=== PATIENT | male | born 1955 | race Caucasian/White ===

== ENCOUNTER 2020-07-02 22:17 | Inpatient (IN) | payer MEDICAID ==
[~2020-07-02] VITALS: Ht 165.1 cm; Wt 81.0 kg
[2020-07-02] MEDS ORDERED: SODIUM CHLORIDE 0.9% 1000ML BAG (SEPSIS BOLUS) IV ONE (22:45)
[2020-07-02 23:11] LABS: BASOPHILS % 0.2 % (0.0-2.0); EOSINOPHILS % 0.2 % (0.0-5.0); HEMATOCRIT. 24.8 % (42.0-52.0); LYMPHOCYTES % 12.2 % (20.0-50.0); MEAN CORPUSCULAR VOLUME 80.4 fL (80.0-94.0); MEAN PLATELET VOLUME 7.9 fl (7.4-10.4); MONOCYTES % 8.5 % (2.0-8.0); NEUTROPHILS % 78.9 % (40.0-76.0); PLATELET 366 x1000/uL (130-400); RED BLOOD CELL COUNT 3.09 mill/uL (4.7-6.1); RED CELL DISTRIBUTION WIDTH 16.6 % (11.6-14.6)
[2020-07-02 23:14] LABS: CHLORIDE 103 mEq/L (98-107)
[2020-07-02 23:15] LABS: INR 2.2; PROTHROMBIN TIME 22.7 sec (9.6-11.0)
[2020-07-03] MEDS ORDERED: VANCOMYCIN 1 G PREMIX 200 ML IV ONE
[2020-07-03] MEDS ORDERED: PIPERACILLIN/TAZ 3.375G PREMIX 50 ML IV ONE
[2020-07-03] MEDS ORDERED: NOREPINEPHRINE 8 MG in DEXT 5% WATER 242 ML IV PRN ×2 (00:30→07:45)
[2020-07-03] MEDS ORDERED: DEXTROSE 50% WATER 50ML SYRINGE IV ONE (00:30)
[2020-07-03] MEDS ORDERED: INSULIN REGULAR (HUMULIN R) 300UNITS/3ML VIAL IV ONE (00:30)
[2020-07-03] MEDS ORDERED: HEPARIN 25,000 UNITS PREMIX 250 ML IV SCH (00:45)
[2020-07-03] MEDS ORDERED: ASPIRIN 325MG EC TABLET PO ONE (00:45)
[2020-07-03 01:02] LABS: BG BASE EXCESS -10.6 mmol/L (-2.0-2.0); BG CARBOXYHEMOGLOBIN 0.2 % (0.5-1.5); BG DEOXYHEMOGLOBIN 0.6 % (0.0-5.0); BG FRACTION INSPIRED OXYGEN 100; BG HCO3 ACT 12.3 mmol/L (22.0-26.0); BG METHEMOGLOBIN 0.1 % (0.0-1.5); BG OXYGEN SATURATION 99.4 % (92.0-98.5); BG OXYHEMOGLOBIN 99.1 % (94.0-97.0); BG PCO2 18.9 mmHg (35.0-45.0); BG PO2 385.7 mmHg (75.0-100.0); BG SAMPLE SITE RIGHT RADIAL; BG TOTAL HEMOGLOBIN 8.2 g/dL (12.0-18.0); BG VENT MODE MASK - NRB
[2020-07-03] MEDS ORDERED: TRAZODONE HCL 50MG TABLET PO PRN (14:45)
[2020-07-03] MEDS ORDERED: ACETAMINOPHEN 325MG TABLET PO PRN (14:45)
[2020-07-03] MEDS ORDERED: ONDANSETRON HCL 4MG/2ML INJ IV PRN (14:45)
[2020-07-03] MEDS ORDERED: DEXTROSE 50% WATER 50ML SYRINGE IV PRN (15:00)
[2020-07-03] MEDS: CEFTRIAXONE 1 G PREMIX 50 ML IV SCH (16:14)
[2020-07-03] MEDS ORDERED: ENOXAPARIN 80MG/0.8ML SYR SUBCUT SCH (16:30)
[2020-07-03 16:33] LABS: BASOPHILS % 0.6 % (0.0-2.0); EOSINOPHILS % 0.1 % (0.0-5.0); HEMATOCRIT. 25.8 % (42.0-52.0); HEMOGLOBIN. 8.3 g/dL (14.0-18.0); LYMPHOCYTES % 7.6 % (20.0-50.0); MEAN CORPUSCULAR HEMOGLOBIN 25.5 pg (28.0-32.0); MEAN CORPUSCULAR VOLUME 79.2 fL (80.0-94.0); MEAN PLATELET VOLUME 7.9 fl (7.4-10.4); NEUTROPHILS % 82.7 % (40.0-76.0); PLATELET 445 x1000/uL (130-400); RED BLOOD CELL COUNT 3.26 mill/uL (4.7-6.1); RED CELL DISTRIBUTION WIDTH 16.7 % (11.6-14.6)
[2020-07-03] MEDS: AZITHROMYCIN 500 MG in DEXT 5% WATER 250 ML IV SCH (16:48)
[2020-07-03] MEDS: BLOOD SUGAR DIAGNOSTIC STRIP TEST SCH (17:53)
[2020-07-03] MEDS: INSULIN LISPRO 100 UNITS/ML SUBCUT SCH ×2 (17:53→21:30)
[2020-07-03] MEDS ORDERED: DOPAMINE 400MG/250ML PREMIX 250 ML IV PRN (18:00)
[2020-07-03] MEDS ORDERED: INSULIN GLARGINE UD 100 UNITS/ML SYR SUBCUT SCH (22:00)
[2020-07-04 05:35] LABS: HEMATOCRIT. 27.7 % (42.0-52.0); HEMOGLOBIN. 8.9 g/dL (14.0-18.0); MEAN CORPUSCULAR HEMOGLOBIN 25.6 pg (28.0-32.0); MEAN CORPUSCULAR VOLUME 79.5 fL (80.0-94.0); MEAN PLATELET VOLUME 7.9 fl (7.4-10.4); PLATELET 434 x1000/uL (130-400); RED BLOOD CELL COUNT 3.49 mill/uL (4.7-6.1); RED CELL DISTRIBUTION WIDTH 16.9 % (11.6-14.6)
[2020-07-04 05:42] LABS: CHLORIDE 106 mEq/L (98-107)
[2020-07-04 05:46] LABS: PROTHROMBIN TIME 29.8 sec (9.6-11.0)
[2020-07-04 05:55] LABS: PHOSPHORUS 6.1 mg/dL (2.5-4.9)
[2020-07-04 05:56] LABS: LDL CHOLESTEROL 35 mg/dL (5-100)
[2020-07-04 05:58] LABS: HDL CHOLESTEROL 27 mg/dL (40-59)
[2020-07-04 06:05] LABS: HEPATITIS B SURFACE ANTIGEN NEGATIVE
[2020-07-04] MEDS: BLOOD SUGAR DIAGNOSTIC STRIP TEST SCH ×3 (07:39→17:46)
[2020-07-04] MEDS: INSULIN LISPRO 100 UNITS/ML SUBCUT SCH ×3 (07:43→17:48)
[2020-07-04 07:48] LABS: NUCLEATED RED BLOOD CELLS 4 /100 WBC; PLATELET ESTIMATE SLIGHTLY INCREASED
[2020-07-04] MEDS ORDERED: SODIUM BICARBONATE 8.4% 1 MEQ/ML 50ML SYR IV SCH (08:34)
[2020-07-04] MEDS ORDERED: DEXTROSE 50% WATER 50ML SYRINGE IV SCH (08:34)
[2020-07-04] MEDS ORDERED: INSULIN REGULAR (HUMULIN R) 300UNITS/3ML VIAL IV SCH (08:34)
[2020-07-04] MEDS ORDERED: SODIUM CHLORIDE 0.9% 1,000 ML IV SCH (08:45)
[2020-07-04] MEDS ORDERED: ASPIRIN 81MG EC TABLET PO SCH (09:00)
[2020-07-04] MEDS ORDERED: SODIUM POLYSTYRENE SULFONATE 15 G/60 ML BOT PO SCH (10:00)
[2020-07-04 10:58] LABS: CREATINE KINASE 104 IU/L (39-308)
[2020-07-04] MEDS: CEFTRIAXONE 1 G PREMIX 50 ML IV SCH (17:48)
[2020-07-04] MEDS: AZITHROMYCIN 500 MG in DEXT 5% WATER 250 ML IV SCH (19:07)
[2020-07-04 20:27] VITALS: BP 157/100
[2020-07-04] MEDS ORDERED: INSULIN GLARGINE UD 100 UNITS/ML SYR SUBCUT SCH (22:00)
== END 2020-07-04 20:31 | disposition expired | DRG 720 ==
LOC: ER 22:17 → EDBD 22:17 → MICUSO 07-03 02:58 → EDBEDREQSVC 07-03 03:01 → EDBEDREQDT 07-03 03:01 → EDBEDREQ 07-03 03:01 → EDBEDREQTM 07-03 03:01
PROVIDERS: ADMIT Internal Medicine; ATTEND Internal Medicine
PROC: 06HY33Z Insertion of Infusion Device into Lower Vein, Percutaneous Approach (ICD-10-PCS; 2020-07-02)
PROC: B54BZZA Ultrasonography of Right Lower Extremity Veins, Guidance (ICD-10-PCS; 2020-07-02)
PROC: 5A1935Z Respiratory Ventilation, Less than 24 Consecutive Hours (ICD-10-PCS; principal; 2020-07-04)
PROC: 0BH17EZ Insertion of Endotracheal Airway into Trachea, Via Natural or Artificial Opening (ICD-10-PCS; 2020-07-04)
PROC: 5A12012 Performance of Cardiac Output, Single, Manual (ICD-10-PCS; 2020-07-04)
DX: A41.89 Other specified sepsis (principal); U07.1 COVID-19; J12.82 Pneumonia due to coronavirus disease 2019; D64.9 Anemia, unspecified; N17.0 Acute kidney failure with tubular necrosis; J96.01 Acute respiratory failure with hypoxia; E46 Unspecified protein-calorie malnutrition; R65.21 Severe sepsis with septic shock; I21.4 Non-ST elevation (NSTEMI) myocardial infarction; E11.65 Type 2 diabetes mellitus with hyperglycemia; E78.5 Hyperlipidemia, unspecified; E87.1 Hypo-osmolality and hyponatremia; E87.2 Acidosis; E87.5 Hyperkalemia; I46.9 Cardiac arrest, cause unspecified; R74.01 Elevation of levels of liver transaminase levels; N18.6 End stage renal disease; I25.10 Atherosclerotic heart disease of native coronary artery without angina pectoris; I13.11 Hypertensive heart and chronic kidney disease without heart failure, with stage 5 chronic kidney disease, or end stage renal disease; S70.11XA Contusion of right thigh, initial encounter; E11.22 Type 2 diabetes mellitus with diabetic chronic kidney disease; N18.9 Chronic kidney disease, unspecified; Z79.01 Long term (current) use of anticoagulants; I25.2 Old myocardial infarction; Z87.891 Personal history of nicotine dependence; Z79.84 Long term (current) use of oral hypoglycemic drugs; Z86.718 Personal history of other venous thrombosis and embolism; Z68.29 Body mass index [BMI] 29.0-29.9, adult; Z79.899 Other long term (current) drug therapy; Z79.82 Long term (current) use of aspirin
CPT/HCPCS: 36415; 36556; 36600; 71045; 76700; 80048; 80053; 80061; 82375; 82550; 82805; 82962; 83036; 83605; 83735; 84100; 84132; 84484; 85025; 86803; 87340; 93005; 93970; 99291; J0456; J0696; J1815; J2543; J3370; J3490; J7030; J7060; U0003